=== PATIENT | female | born 2000 | race Caucasian/White ===

== ENCOUNTER 2018-11-27 19:04 | Emergency (ER) | payer OTHER ==
[~2018-11-27] VITALS: Ht 157.5 cm; Wt 80.0 kg
[2018-11-27 19:15] VITALS: BP 127/81; TEMP 99
[2018-11-27 20:40] LABS: BASO % 0.3 % (0.0-2.0); EOS % 0.1 % (0-4.0); GRAN # 8.4 (1.4-6.5); GRAN % 63.9 % (42.2-75.2); HEMATOCRIT 43.9 % (35.0-45.0); HEMOGLOBIN 14.8 g/dl (12.0-15.0); LYMPH # 3.8 (1.2-3.4); LYMPH % 28.6 % (20.0-51.0); MEAN CELL VOLUME 89 fl (80.0-95.0); MEAN CORPUSCULAR HEMOGLOBIN 30 pg (26.0-32.0); MEAN CORPUSCULAR HGB CONC 34 g/dl (33.0-37.0); MEAN PLATELET VOLUME 10.2 fl (7.4-10.4); MONO # 0.9 (0.1-0.6); MONO % 6.6 % (1.7-9.3); PLATELET COUNT 309 K/mm3 (130-400); RED BLOOD COUNT 4.92 M/mm3 (4.10-5.30)
[2018-11-27 20:48] LABS: COLLECTION METHOD CLEAN CATCH
[2018-11-27 20:56] LABS: MUCOUS Present /lpf; PH 6 (5-8); SQUAMOUS EPITHELIAL 0-2 /hpf; URINE APPEARANCE Clear; URINE BACTERIA None Seen /hpf; URINE BILIRUBIN Negative (NEGATIVE); URINE BLOOD Negative (NEGATIVE); URINE COLOR Yellow; URINE GLUCOSE Negative (NEGATIVE); URINE KETONE Trace (NEGATIVE); URINE LEUKOCYTE ESTERASE Negative (NEGATIVE); URINE NITRATE Negative (NEGATIVE); URINE PROTEIN(semi-quant) Negative (NEGATIVE); URINE RBC 0-2 /hpf; URINE UROBILINOGEN Negative (NEGATIVE)
[2018-11-27 20:57] LABS: ALBUMIN 4.6 gm/dL (3.5-5.0); BILIRUBIN,TOTAL 0.4 mg/dL (0.0-1.0); CALCIUM 10.5 mg/dL (8.4-10.2); CREATININE, serum 0.58 mg/dL (0.52-1.25); POTASSIUM 3.5 mmol/L (3.4-5.0); TOTAL PROTEIN 8.1 gm/dL (6.4-8.2)
[2018-11-28 00:15] VITALS: PULSE 109
== END 2018-11-27 23:25 | disposition home or self-care (01) ==
LOC: COL.ER 19:04
PROVIDERS: Emergency Medicine
DX: O26.891 Other specified pregnancy related conditions, first trimester (principal); R10.2 Pelvic and perineal pain; F17.210 Nicotine dependence, cigarettes, uncomplicated; Z3A.09 9 weeks gestation of pregnancy; Z90.49 Acquired absence of other specified parts of digestive tract; Z98.890 Other specified postprocedural states
CPT/HCPCS: J7030

== ENCOUNTER 2019-07-16 21:59 | Emergency (ER) | payer OTHER ==
[~2019-07-16] VITALS: Ht 157.5 cm; Wt 65.9 kg
[2019-07-16 22:31] VITALS: TEMP 98.9
[2019-07-16 23:41] LABS: COLLECTION METHOD CLEAN CATCH
[2019-07-16 23:47] LABS: MUCOUS Present /lpf; PH 6 (5-8); URINE APPEARANCE Hazy; URINE BACTERIA Rare /hpf; URINE BILIRUBIN Negative (NEGATIVE); URINE BLOOD Negative (NEGATIVE); URINE COLOR Amber; URINE GLUCOSE Negative (NEGATIVE); URINE KETONE Negative (NEGATIVE); URINE LEUKOCYTE ESTERASE Trace (NEGATIVE); URINE NITRATE Negative (NEGATIVE); URINE PROTEIN(semi-quant) 1+ (NEGATIVE); URINE RBC 0-2 /hpf
[2019-07-17] MEDS ORDERED: NORFLEX 10100 MG/TAB PO (00:41)
[2019-07-17] MEDS ORDERED: ULTRAM 50MG TAB50 MG PO (00:41)
[2019-07-17 01:19] VITALS: BP 118/84; PULSE 74
== END 2019-07-17 01:19 | disposition home or self-care (01) ==
LOC: COL.ER 21:59
PROVIDERS: Emergency Medicine
DX: M54.5 Low back pain (principal); M53.3 Sacrococcygeal disorders, not elsewhere classified; F17.210 Nicotine dependence, cigarettes, uncomplicated; Z88.8 Allergy status to other drugs, medicaments and biological substances; Z98.890 Other specified postprocedural states; Z90.89 Acquired absence of other organs

== ENCOUNTER 2019-09-25 21:30 | Emergency (ER) | payer OTHER ==
[~2019-09-25] VITALS: Ht 157.5 cm; Wt 65.9 kg
[~2019-09-25 21:30] MED LIST: NORFLEX 10100 MG/TAB PO; ULTRAM 50MG TAB50 MG PO
[2019-09-25 21:39] VITALS: BP 136/89; TEMP 98.6
[2019-09-25 21:48] LABS: COLLECTION METHOD CLEAN CATCH
[2019-09-25 22:12] LABS: MUCOUS Present /lpf; PH 7 (5-8); SQUAMOUS EPITHELIAL 0-2 /hpf; URINE APPEARANCE Cloudy; URINE BACTERIA Rare /hpf; URINE BILIRUBIN Negative (NEGATIVE); URINE BLOOD 1+ (NEGATIVE); URINE COLOR Amber; URINE GLUCOSE Negative (NEGATIVE); URINE KETONE Negative (NEGATIVE); URINE LEUKOCYTE ESTERASE 3+ (NEGATIVE); URINE NITRATE Negative (NEGATIVE); URINE PROTEIN(semi-quant) 2+ (NEGATIVE); URINE RBC 20-50 /hpf
[2019-09-25] MEDS ORDERED: CEFTIN 250250 MG/TAB PO (23:01)
[2019-09-25 23:17] VITALS: PULSE 92
== END 2019-09-25 23:17 | disposition home or self-care (01) ==
LOC: COL.ER 21:30
PROVIDERS: Emergency Medicine
DX: N39.0 Urinary tract infection, site not specified (principal); F17.210 Nicotine dependence, cigarettes, uncomplicated; Z98.890 Other specified postprocedural states; Z90.89 Acquired absence of other organs; Z90.49 Acquired absence of other specified parts of digestive tract

== ENCOUNTER 2021-03-30 12:19 | Emergency (ER) | payer OTHER ==
[~2021-03-30] VITALS: Ht 157.5 cm; Wt 54.1 kg
[~2021-03-30 12:19] MED LIST changes: +CEFTIN 250250 MG/TAB PO
[2021-03-30 12:36] VITALS: TEMP 96.9
[2021-03-30 13:17] LABS: BASO % 0.4 % (0.0-2.0); EOS % 0.1 % (0-4.0); GRAN # 4.6 (1.4-6.5); GRAN % 58.6 % (42.2-75.2); HEMATOCRIT 41.4 % (37.0-47.0); LYMPH # 2.7 (1.2-3.4); MEAN CELL VOLUME 90 fl (80.0-100.0); MEAN CORPUSCULAR HEMOGLOBIN 30 pg (27.0-31.0); MEAN CORPUSCULAR HGB CONC 34 g/dl (33.0-37.0); MEAN PLATELET VOLUME 9.5 fl (7.4-10.4); MONO # 0.4 (0.1-0.6); MONO % 5.6 % (1.7-9.3); PLATELET COUNT 367 K/mm3 (130-400); RED BLOOD COUNT 4.61 M/mm3 (4.10-5.30); REDCELL DISTRIBUTION WIDTH-CV 12.2 % (11.5-14.5)
[2021-03-30 13:26] LABS: ALBUMIN 4.2 gm/dL (3.5-5.0); BILIRUBIN,TOTAL 0.4 mg/dL (0.0-1.0); CALCIUM 10.5 mg/dL (8.4-10.2); CREATININE, serum 0.5 (0.52-1.25); POTASSIUM 3.5 mmol/L (3.4-5.0); TOTAL PROTEIN 7.7 gm/dL (6.4-8.2)
[2021-03-30] MEDS ORDERED: CATAPRES 0.1MG0.1 MG PO (15:31)
[2021-03-30] MEDS ORDERED: ATARAX 10MG10 MG/TAB PO (15:31)
--- NOTE | 2021-03-30 16:13 | NUR ---
SW recieved consult about Opioid Dtx. Patient is interested in Detox. SW met with patient about Detox. SW gave patient resource packet with Detox options. Educated patient on process and insurance. insurance requires a referral from Primary Care to inpatient. [facility] called [facility], [facility], [facility], and [facility]. [facility] gordon can take medical detox but mst have rfer. Education patient and BF. NF.
[2021-03-30 16:17] VITALS: BP 130/91; PULSE 71
== END 2021-03-30 16:18 | disposition home or self-care (01) ==
LOC: COL.ER 12:19
PROVIDERS: Family Medicine
DX: O26.891 Other specified pregnancy related conditions, first trimester (principal); R10.9 Unspecified abdominal pain; G47.00 Insomnia, unspecified; M79.641 Pain in right hand; M79.642 Pain in left hand; O99.321 Drug use complicating pregnancy, first trimester; F11.23 Opioid dependence with withdrawal; Z3A.00 Weeks of gestation of pregnancy not specified
CPT/HCPCS: J2405; J7120